=== PATIENT | female | born 1965 | race Caucasian/White ===

== ENCOUNTER 2020-08-23 12:13 | Inpatient (IN) | payer MEDICAID ==
[~2020-08-23] VITALS: Ht 152.4 cm; Wt 52.6 kg
[2020-08-23 14:04] LABS: COVID AG,FIA SOURCE NASOPHARYNGEAL
[2020-08-23] MEDS ORDERED: HALOPERIDOL 5 MG TABLET PO PRN (15:30)
[2020-08-23] MEDS: LORazepam 1 MG TABLET PO PRN (17:39)
[2020-08-23 17:40] VITALS: BP 114/77
[2020-08-23] MEDS: ZOLPIDEM TARTRATE 10 MG TABLET PO PRN (20:41)
[2020-08-24 05:52] VITALS: BP 101/61
[2020-08-24] MEDS ORDERED: BENZOCAINE/MENTHOL LOZENGE PO PRN (06:30)
[2020-08-24] MEDS ORDERED: ACETAMINOPHEN 325 MG TABLET PO PRN (06:30)
[2020-08-24] MEDS ORDERED: LOPERAMIDE HCL 2 MG CAPSULE PO PRN (06:30)
[2020-08-24] MEDS ORDERED: PETROLATUM,WHITE 28 GM JELLY TP PRN (06:30)
[2020-08-24] MEDS ORDERED: ONDANSETRON HCL 4 MG TABLET PO PRN (06:30)
[2020-08-24] MEDS ORDERED: MAG HYDROX/AL HYDROX/SIMETH ES 30 ML SUSPENSION UDCUP PO PRN (06:30)
[2020-08-24] MEDS ORDERED: MAGNESIUM HYDROXIDE SUSPENSION 30 ML UDCUP PO PRN (06:30)
[2020-08-24] MEDS ORDERED: CloNIDine HCL 0.1 MG TABLET PO PRN (06:30)
[2020-08-24] MEDS ORDERED: DOCUSATE SODIUM 100 MG CAPSULE PO PRN (06:30)
[2020-08-24] MEDS ORDERED: BACITRACIN 28 GM OINTMENT TP PRN (06:30)
[2020-08-24] MEDS ORDERED: OMEPRAZOLE 20 MG CAPSULE PO PRN (06:30)
[2020-08-24 08:26] VITALS: BP 111/70
[2020-08-24] MEDS: ALBUTEROL SULFATE/IPRATROPIUM 100-20 MCG/SPRAY 4 GM INHALER IH SCH ×3 (08:39→16:17)
[2020-08-24] MEDS: LORazepam 1 MG TABLET PO PRN ×2 (08:42→16:16)
[2020-08-24] MEDS: CITALOPRAM HYDROBROMIDE 20 MG TABLET PO SCH (10:30)
[2020-08-24 16:10] VITALS: BP 122/66
[2020-08-25 04:43] VITALS: BP 130/92
[2020-08-25 04:55] VITALS: BP 130/90
[2020-08-25] MEDS: LORazepam 1 MG TABLET PO PRN ×5 (04:59→21:15)
[2020-08-25] MEDS: ALBUTEROL SULFATE/IPRATROPIUM 100-20 MCG/SPRAY 4 GM INHALER IH SCH ×3 (05:00→16:12)
[2020-08-25] MEDS: IBUPROFEN 600 MG TABLET PO PRN (05:00)
[2020-08-25] MEDS: CITALOPRAM HYDROBROMIDE 20 MG TABLET PO SCH (08:14)
[2020-08-25 09:24] LABS: BASOPHILS % (AUTO) 0.3 % (0.0-2.0); EOSINOPHILS % (AUTO) 1.1 % (1.0-6.0); HEMOGLOBIN 13.6 g/dL (12.0-16.0); LYMPHOCYTES # (AUTO) 1.4 K/uL (1.0-4.8); LYMPHOCYTES % (AUTO) 24.5 % (22.0-44.0); MEAN CORPUSCULAR HEMOGLOBIN 30.6 pg (26.0-34.0); MEAN CORPUSCULAR HGB CONC 33.2 G/dL (31.0-37.0); MEAN CORPUSCULAR VOLUME 92 fL (80-100); MONOCYTES # (AUTO) 0.5 K/uL (0.1-1.0); MONOCYTES % (AUTO) 8.7 % (2.0-9.0); NEUTROPHILS # (AUTO) 3.7 K/uL (1.8-7.7); NEUTROPHILS % (AUTO) 65.4 % (40.0-70.0); PLATELET COUNT (AUTO) 256 K/uL (150-450); RED BLOOD CELL COUNT(AUTO) 4.44 MIL/uL (4.00-5.20); RED CELL DISTRIBUTION WIDTH 14.2 % (11.5-14.5)
[2020-08-25 10:04] LABS: HEMOGLOBIN A1C 5.6 % (3.8-5.6)
[2020-08-25 10:47] LABS: ALANINE AMINOTRANSFERASE 23 U/L (12-78); ALBUMIN 3.9 g/dL (3.4-5.0); ALKALINE PHOSPHATASE 82 U/L (46-116); ANION GAP 9 mmol/L (8-16); ASPARTATE AMINOTRANSFERASE 20 U/L (15-37); CARBON DIOXIDE 24 mmol/L (22-29); CHLORIDE 104 mmol/L (98-107); CHOL/HDL RATIO 2.5 (3.9-5.7); CHOLESTEROL 170 mg/dL (131-200); CREATININE 0.66 mg/dL (0.60-1.30); FREE T4 (FREE THYROXINE) 1.11 ng/dL (0.76-1.46); GLOMERULAR FILTR. RATE CALC > 60 mL/min (>60); GLUCOSE,RANDOM 81 mg/dL (70-110); HDL CHOLESTEROL 68 mg/dL (40-60); LDL CHOL (CALC.) 85 mg/dL (0-130); POTASSIUM 4.1 mmol/L (3.5-5.1); SODIUM SERUM 137 mmol/L (136-145); THYROID STIMULATING HORMONE 0.88 uIU/mL (0.36-3.74); TOTAL PROTEIN, SERUM 6.7 g/dL (6.4-8.2); TRIGLYCERIDES 86 mg/dL (15-150); UREA NITROGEN, BLOOD 23 mg/dL (7-18)
[2020-08-25 17:07] VITALS: BP 139/78
[2020-08-25] MEDS: ZOLPIDEM TARTRATE 10 MG TABLET PO PRN (21:15)
[2020-08-26 03:27] VITALS: BP 132/89
[2020-08-26] MEDS: ALBUTEROL SULFATE/IPRATROPIUM 100-20 MCG/SPRAY 4 GM INHALER IH SCH ×3 (08:01→16:05)
[2020-08-26] MEDS: CITALOPRAM HYDROBROMIDE 20 MG TABLET PO SCH (08:01)
[2020-08-26] MEDS: LORazepam 1 MG TABLET PO PRN ×3 (08:01→15:27)
[2020-08-26 08:11] VITALS: BP 131/83
[2020-08-26] MEDS: ALBUTEROL SULFATE HFA 90 MCG/PUFF 8 GM INHALER IH PRN (13:12)
[2020-08-26] MEDS: IBUPROFEN 600 MG TABLET PO PRN (13:13)
[2020-08-26 16:10] VITALS: BP 119/63
[2020-08-27 00:02] VITALS: BP 127/73
[2020-08-27] MEDS: LORazepam 1 MG TABLET PO PRN ×6 (00:10→20:31)
[2020-08-27] MEDS: ALBUTEROL SULFATE/IPRATROPIUM 100-20 MCG/SPRAY 4 GM INHALER IH SCH ×3 (08:03→16:14)
[2020-08-27] MEDS: CITALOPRAM HYDROBROMIDE 20 MG TABLET PO SCH (08:03)
[2020-08-27 08:13] VITALS: BP 132/80
[2020-08-27 16:05] VITALS: BP 126/80
[2020-08-27] MEDS: ZOLPIDEM TARTRATE 10 MG TABLET PO PRN (20:31)
[2020-08-28 05:04] VITALS: BP 124/74
[2020-08-28] MEDS: LORazepam 1 MG TABLET PO PRN ×3 (07:54→16:14)
[2020-08-28] MEDS: CITALOPRAM HYDROBROMIDE 20 MG TABLET PO SCH (08:03)
[2020-08-28 08:15] VITALS: BP 104/57
[2020-08-28] MEDS: ALBUTEROL SULFATE/IPRATROPIUM 100-20 MCG/SPRAY 4 GM INHALER IH SCH ×3 (09:30→16:12)
[2020-08-28] MEDS: ALBUTEROL SULFATE HFA 90 MCG/PUFF 8 GM INHALER IH PRN ×2 (11:55→16:14)
[2020-08-28 16:19] VITALS: BP 105/67
[2020-08-29 00:16] VITALS: BP 106/66
[2020-08-29] MEDS: LORazepam 1 MG TABLET PO PRN ×3 (04:40→16:58)
[2020-08-29 08:20] VITALS: BP 115/72
[2020-08-29] MEDS: ALBUTEROL SULFATE/IPRATROPIUM 100-20 MCG/SPRAY 4 GM INHALER IH SCH ×3 (08:24→16:58)
[2020-08-29] MEDS: CITALOPRAM HYDROBROMIDE 20 MG TABLET PO SCH (08:24)
[2020-08-29] MEDS: ALBUTEROL SULFATE HFA 90 MCG/PUFF 8 GM INHALER IH PRN (08:40)
[2020-08-29 16:13] VITALS: BP 108/66
[2020-08-29] MEDS: ZOLPIDEM TARTRATE 10 MG TABLET PO PRN (20:16)
[2020-08-30 04:10] VITALS: BP 118/62
[2020-08-30] MEDS: LORazepam 1 MG TABLET PO PRN ×2 (05:20→08:17)
[2020-08-30] MEDS: CITALOPRAM HYDROBROMIDE 20 MG TABLET PO SCH (08:17)
[2020-08-30] MEDS: ALBUTEROL SULFATE/IPRATROPIUM 100-20 MCG/SPRAY 4 GM INHALER IH SCH (08:17)
[2020-08-30 08:37] VITALS: BP 106/68
[2020-08-30] MEDS ORDERED: CITA-144 PO (11:29)
== END 2020-08-30 12:12 | disposition home or self-care (01) | DRG 750 ==
LOC: B3A 15:00
PROVIDERS: ADMIT Psychiatry & Neurology Psychiatry; ATTEND Psychiatry & Neurology Psychiatry
DX: F25.9 Schizoaffective disorder, unspecified (principal); F12.90 Cannabis use, unspecified, uncomplicated; Z20.822 Contact with and (suspected) exposure to COVID-19; F14.90 Cocaine use, unspecified, uncomplicated; F32.9 Major depressive disorder, single episode, unspecified; F41.9 Anxiety disorder, unspecified; G47.00 Insomnia, unspecified; J45.909 Unspecified asthma, uncomplicated; K59.00 Constipation, unspecified
CPT/HCPCS: 80053; 80061; 83036; 84436; 84439; 84443; 85025; J3535

== ENCOUNTER 2020-09-20 15:20 | Inpatient (IN) | payer MEDICAID ==
[~2020-09-20] VITALS: Ht 152.4 cm; Wt 49.3 kg
[~2020-09-20 15:20] MED LIST: CITA-144 PO
[2020-09-20 16:10] LABS: BASOPHILS % (AUTO) 0.8 % (0.0-2.0); EOSINOPHILS % (AUTO) 0.7 % (1.0-6.0); HEMATOCRIT 41.8 % (36-46); HEMOGLOBIN 13.9 g/dL (12.0-16.0); LYMPHOCYTES # (AUTO) 2.1 K/uL (1.0-4.8); LYMPHOCYTES % (AUTO) 24.1 % (22.0-44.0); MEAN CORPUSCULAR HEMOGLOBIN 30.4 pg (26.0-34.0); MEAN CORPUSCULAR HGB CONC 33.2 G/dL (31.0-37.0); MEAN CORPUSCULAR VOLUME 92 fL (80-100); MONOCYTES # (AUTO) 0.7 K/uL (0.1-1.0); MONOCYTES % (AUTO) 8.5 % (2.0-9.0); NEUTROPHILS # (AUTO) 5.6 K/uL (1.8-7.7); NEUTROPHILS % (AUTO) 65.9 % (40.0-70.0); PLATELET COUNT (AUTO) 291 K/uL (150-450); RED BLOOD CELL COUNT(AUTO) 4.57 MIL/uL (4.00-5.20); RED CELL DISTRIBUTION WIDTH 14.5 % (11.5-14.5)
[2020-09-20 16:20] LABS: ANION GAP 12 mmol/L (8-16); CALCIUM, TOTAL 9.2 mg/dL (8.8-10.5); CARBON DIOXIDE 21 mmol/L (22-29); CHLORIDE 103 mmol/L (98-107); CREATININE 0.74 mg/dL (0.60-1.30); GLOMERULAR FILTR. RATE CALC > 60 mL/min (>60); GLUCOSE,RANDOM 94 mg/dL (70-110); POTASSIUM 3.3 mmol/L (3.5-5.1); SODIUM SERUM 136 mmol/L (136-145); UREA NITROGEN, BLOOD 14 mg/dL (7-18)
[2020-09-20 16:33] LABS: ALANINE AMINOTRANSFERASE 26 U/L (12-78); ALBUMIN 4.4 g/dL (3.4-5.0); ALKALINE PHOSPHATASE 85 U/L (46-116); ASPARTATE AMINOTRANSFERASE 23 U/L (15-37); HCG,QUANTITATIVE 2 mIU/mL (0-6); TOTAL PROTEIN, SERUM 7.5 g/dL (6.4-8.2)
[2020-09-20] MEDS ORDERED: POTASSIUM CHLORIDE 20 MEQ ER TABLET PO ONE (19:15)
[2020-09-20] MEDS ORDERED: LORazepam 2 MG/ML VIAL IM ONE (19:15)
[2020-09-20] MEDS ORDERED: DiphenhydrAMINE HCL 50 MG/ML VIAL IM ONE (19:15)
[2020-09-20] MEDS ORDERED: HALOPERIDOL LACTATE 5 MG/ML VIAL IM ONE (19:15)
[2020-09-20 19:45] LABS: COVID AG,FIA SOURCE NASOPHARYNGEAL
[2020-09-20 19:55] LABS: AMPHET/METH SCREEN,URINE NEGATIVE (NEGATIVE); BARBITURATE SCREEN, URINE NEGATIVE (NEGATIVE); BENZODIAZEPINES SCREEN,URINE NEGATIVE (NEGATIVE); CANNABINOID SCREEN,URINE POSITIVE (NEGATIVE); COCAINE SCREEN,URINE NEGATIVE (NEGATIVE); METHADONE SCREEN, URINE NEGATIVE (NEGATIVE); OPIATE SCREEN,URINE NEGATIVE (NEGATIVE)
[2020-09-20 19:56] LABS: PHENCYCLIDINE SCREEN,URINE NEGATIVE (NEGATIVE)
[2020-09-20] MEDS ORDERED: ZOLPIDEM TARTRATE 10 MG TABLET PO PRN (20:00)
[2020-09-21 00:50] VITALS: BP 138/75
[2020-09-21] MEDS ORDERED: PNEUMOCOCCAL VACCINE POLYVALENT 0.5 ML VIAL [PPSV23] IM. ONE (03:15)
[2020-09-21 08:26] VITALS: BP 126/69
[2020-09-21] MEDS ORDERED: LOPERAMIDE HCL 2 MG CAPSULE PO PRN (08:30)
[2020-09-21] MEDS ORDERED: MAG HYDROX/AL HYDROX/SIMETH ES 30 ML SUSPENSION UDCUP PO PRN (08:30)
[2020-09-21] MEDS ORDERED: ALBUTEROL SULFATE HFA 90 MCG/PUFF 8 GM INHALER IH PRN (08:30)
[2020-09-21] MEDS ORDERED: BACITRACIN 28 GM OINTMENT TP PRN (08:30)
[2020-09-21] MEDS ORDERED: BENZOCAINE/MENTHOL LOZENGE PO PRN (08:30)
[2020-09-21] MEDS ORDERED: DOCUSATE SODIUM 100 MG CAPSULE PO PRN (08:30)
[2020-09-21] MEDS ORDERED: IBUPROFEN 600 MG TABLET PO PRN (08:30)
[2020-09-21] MEDS ORDERED: OMEPRAZOLE 20 MG CAPSULE PO PRN (08:30)
[2020-09-21] MEDS ORDERED: ONDANSETRON HCL 4 MG TABLET PO PRN (08:30)
[2020-09-21] MEDS ORDERED: ACETAMINOPHEN 325 MG TABLET PO PRN (08:30)
[2020-09-21] MEDS ORDERED: MAGNESIUM HYDROXIDE SUSPENSION 30 ML UDCUP PO PRN (08:30)
[2020-09-21] MEDS ORDERED: PETROLATUM,WHITE 28 GM JELLY TP PRN (08:30)
[2020-09-21] MEDS ORDERED: CloNIDine HCL 0.1 MG TABLET PO PRN (08:30)
[2020-09-21] MEDS: CITALOPRAM HYDROBROMIDE 20 MG TABLET PO SCH (10:15)
[2020-09-21] MEDS: RisperiDONE 1 MG TABLET PO SCH ×2 (10:15→17:00)
[2020-09-21] MEDS: LORazepam 2 MG TABLET PO PRN (10:49)
[2020-09-21 16:23] VITALS: BP 117/62
[2020-09-22 01:16] VITALS: BP 118/71
[2020-09-22 07:45] LABS: POTASSIUM 3.9 mmol/L (3.5-5.1)
[2020-09-22] MEDS: LORazepam 2 MG TABLET PO PRN ×2 (08:13→13:23)
[2020-09-22] MEDS: RisperiDONE 1 MG TABLET PO SCH ×2 (08:14→16:27)
[2020-09-22] MEDS: CITALOPRAM HYDROBROMIDE 20 MG TABLET PO SCH (08:14)
[2020-09-22 09:00] VITALS: BP 106/70
[2020-09-22] MEDS: HALOPERIDOL 5 MG TABLET PO PRN (12:20)
[2020-09-22 16:23] VITALS: BP 110/60
[2020-09-23 00:34] VITALS: BP 109/68
[2020-09-23] MEDS: LORazepam 2 MG TABLET PO PRN ×2 (05:21→10:29)
[2020-09-23] MEDS: CITALOPRAM HYDROBROMIDE 20 MG TABLET PO SCH (08:45)
[2020-09-23] MEDS: RisperiDONE 1 MG TABLET PO SCH (08:45)
[2020-09-23] MEDS: HALOPERIDOL 5 MG TABLET PO PRN (08:49)
[2020-09-23 09:01] VITALS: BP 137/78
[2020-09-23] MEDS ORDERED: RISP0.5T61 PO (11:07)
[2020-09-23] MEDS ORDERED: RISP1TAB89 PO (11:10)
== END 2020-09-23 12:10 | disposition home or self-care (01) | DRG 750 ==
LOC: EMS 15:25 → B2S 19:00
PROVIDERS: ADMIT Psychiatry & Neurology Psychiatry; ATTEND Psychiatry & Neurology Psychiatry
DX: F20.0 Paranoid schizophrenia (principal); R45.851 Suicidal ideations; Z91.14 Patient's other noncompliance with medication regimen; F12.90 Cannabis use, unspecified, uncomplicated; F14.90 Cocaine use, unspecified, uncomplicated; G47.00 Insomnia, unspecified; J45.909 Unspecified asthma, uncomplicated; Z20.822 Contact with and (suspected) exposure to COVID-19; K59.00 Constipation, unspecified; Z87.891 Personal history of nicotine dependence
CPT/HCPCS: 80053; 84132; 84295; 84702; 85025; 87081; 99285; G0480; J1200; J1630; J2060

== ENCOUNTER 2021-06-15 16:43 | Inpatient (IN) | payer MEDICAID ==
[~2021-06-15] VITALS: Ht 152.4 cm; Wt 48.2 kg
[~2021-06-15 16:43] MED LIST changes: +RISP1TAB89 PO
[2021-06-15 17:18] LABS: BASOPHILS % (AUTO) 0.2 % (0.0-2.0); EOSINOPHILS % (AUTO) 0.5 % (1.0-6.0); HEMOGLOBIN 12.5 g/dL (12.0-16.0); LYMPHOCYTES % (AUTO) 13.4 % (22.0-44.0); MEAN CORPUSCULAR HEMOGLOBIN 30.5 pg (26.0-34.0); MEAN CORPUSCULAR HGB CONC 33.9 G/dL (31.0-37.0); MEAN CORPUSCULAR VOLUME 90 fL (80-100); MONOCYTES # (AUTO) 0.5 K/uL (0.1-1.0); MONOCYTES % (AUTO) 6.9 % (2.0-9.0); NEUTROPHILS # (AUTO) 5.8 K/uL (1.8-7.7); PLATELET COUNT (AUTO) 252 K/uL (150-450); RED BLOOD CELL COUNT(AUTO) 4.11 MIL/uL (4.00-5.20)
[2021-06-15 17:32] LABS: ANION GAP 12 mmol/L (8-16); CARBON DIOXIDE 26 mmol/L (22-29); CHLORIDE 104 mmol/L (98-107); CREATININE 1.14 mg/dL (0.60-1.30); GLOMERULAR FILTR. RATE CALC 49 mL/min (>60); GLUCOSE,RANDOM 144 mg/dL (70-110); SODIUM SERUM 142 mmol/L (136-145); UREA NITROGEN, BLOOD 19 mg/dL (7-18)
[2021-06-15 17:37] LABS: ALANINE AMINOTRANSFERASE 24 U/L (12-78); ALBUMIN 3.9 g/dL (3.4-5.0); ALKALINE PHOSPHATASE 90 U/L (46-116); ASPARTATE AMINOTRANSFERASE 21 U/L (15-37); BILIRUBIN,TOTAL 0.5 mg/dL (0.1-1.0); TOTAL PROTEIN, SERUM 6.4 g/dL (6.4-8.2)
[2021-06-15] MEDS ORDERED: ZOLPIDEM TARTRATE 10 MG TABLET PO PRN (18:00)
[2021-06-15] MEDS ORDERED: HALOPERIDOL 5 MG TABLET PO PRN (18:00)
[2021-06-15] MEDS ORDERED: POTASSIUM CHLORIDE 10% 40 MEQ/30 ML LIQUID UDCUP PO ONE (18:00)
[2021-06-15 18:32] LABS: COVID AG,FIA SOURCE NASOPHARYNGEAL
[2021-06-15 18:45] LABS: APPEARANCE,URINE CLEAR (CLEAR); BILIRUBIN,URINE NEGATIVE (NEGATIVE); GLUCOSE, URINE (UA) NEGATIVE (NEGATIVE); KETONES,URINE NEGATIVE (NEGATIVE); LEUKOCYTE ESTERASE ,URINE TRACE (NEGATIVE); NITRATE,URINE NEGATIVE (NEGATIVE); OCCULT BLOOD,URINE NEGATIVE (NEGATIVE); PH,URINE 6.5 (5.0-8.0); PROTEIN,URINE TRACE mg/dL (NEGATIVE); SPECIFIC GRAVITIY, URINE 1.016 (1.003-1.030); UROBILINOGEN,URINE <=1.0 mg/dL (<=1.0)
[2021-06-15 18:52] LABS: AMPHET/METH SCREEN,URINE POSITIVE (NEGATIVE); BARBITURATE SCREEN, URINE NEGATIVE (NEGATIVE); BENZODIAZEPINES SCREEN,URINE POSITIVE (NEGATIVE); CANNABINOID SCREEN,URINE POSITIVE (NEGATIVE); COCAINE SCREEN,URINE NEGATIVE (NEGATIVE); METHADONE SCREEN, URINE NEGATIVE (NEGATIVE); OPIATE SCREEN,URINE NEGATIVE (NEGATIVE)
[2021-06-15 19:08] LABS: BACTERIA,URINE None Seen /HPF (None Seen); RBC,URINE 0-2 /HPF (0-2); SQUAMOUS EPITHELIAL CELL,UR Few /LPF (None Seen); WBC,URINE 0-2 /HPF (0-5)
[2021-06-15 19:09] LABS: PHENCYCLIDINE SCREEN,URINE NEGATIVE (NEGATIVE)
[2021-06-15] MEDS ORDERED: DiphenhydrAMINE HCL 50 MG/ML VIAL IM ONE (19:30)
[2021-06-15] MEDS ORDERED: HALOPERIDOL LACTATE 5 MG/ML VIAL IM ONE (19:30)
[2021-06-15] MEDS ORDERED: LORazepam 2 MG/ML VIAL IM ONE (19:30)
[2021-06-15] MEDS ORDERED: PNEUMOCOCCAL VACCINE POLYVALENT 0.5 ML VIAL [PPSV23] IM. ONE (20:30)
[2021-06-16] MEDS ORDERED: CloNIDine HCL 0.1 MG TABLET PO PRN (08:15)
[2021-06-16] MEDS ORDERED: ACETAMINOPHEN 325 MG TABLET PO PRN (08:15)
[2021-06-16] MEDS ORDERED: BENZOCAINE/MENTHOL LOZENGE PO PRN (08:15)
[2021-06-16] MEDS ORDERED: OMEPRAZOLE 20 MG CAPSULE PO PRN (08:15)
[2021-06-16] MEDS ORDERED: ONDANSETRON HCL 4 MG TABLET PO PRN (08:15)
[2021-06-16] MEDS ORDERED: PETROLATUM,WHITE 28 GM JELLY TP PRN (08:15)
[2021-06-16] MEDS ORDERED: DOCUSATE SODIUM 100 MG CAPSULE PO PRN (08:15)
[2021-06-16] MEDS ORDERED: BACITRACIN 28 GM OINTMENT TP PRN (08:15)
[2021-06-16] MEDS ORDERED: IBUPROFEN 600 MG TABLET PO PRN (08:15)
[2021-06-16] MEDS ORDERED: LOPERAMIDE HCL 2 MG CAPSULE PO PRN (08:15)
[2021-06-16] MEDS ORDERED: MAGNESIUM HYDROXIDE SUSPENSION 30 ML UDCUP PO PRN (08:15)
[2021-06-16] MEDS ORDERED: MAG HYDROX/AL HYDROX/SIMETH ES 30 ML SUSPENSION UDCUP PO PRN (08:15)
[2021-06-16] MEDS: CITALOPRAM HYDROBROMIDE 20 MG TABLET PO SCH (15:03)
[2021-06-16] MEDS: RisperiDONE 1 MG TABLET PO SCH (16:31)
[2021-06-16 16:40] VITALS: BP 109/72
[2021-06-16] MEDS ORDERED: RisperiDONE 1 MG TABLET PO SCH (17:00)
[2021-06-17] MEDS: CITALOPRAM HYDROBROMIDE 20 MG TABLET PO SCH (08:56)
[2021-06-17] MEDS: RisperiDONE 1 MG TABLET PO SCH ×2 (08:57→16:48)
[2021-06-17 16:29] VITALS: BP 108/79
[2021-06-18] MEDS: LORazepam 2 MG TABLET PO PRN (07:54)
[2021-06-18] MEDS: CITALOPRAM HYDROBROMIDE 20 MG TABLET PO SCH (07:54)
[2021-06-18] MEDS: RisperiDONE 1 MG TABLET PO SCH ×2 (08:00→16:53)
[2021-06-18 08:32] VITALS: BP 100/62
[2021-06-19] MEDS: LORazepam 2 MG TABLET PO PRN ×3 (07:47→15:54)
[2021-06-19] MEDS: RisperiDONE 1 MG TABLET PO SCH ×2 (07:52→15:55)
[2021-06-19] MEDS: CITALOPRAM HYDROBROMIDE 20 MG TABLET PO SCH (07:52)
[2021-06-19] MEDS: ALBUTEROL SULFATE HFA 90 MCG/PUFF 8 GM INHALER IH PRN (10:36)
[2021-06-20] MEDS: LORazepam 2 MG TABLET PO PRN ×3 (06:40→18:13)
[2021-06-20] MEDS: ALBUTEROL SULFATE HFA 90 MCG/PUFF 8 GM INHALER IH PRN ×2 (06:41→17:47)
[2021-06-20] MEDS: CITALOPRAM HYDROBROMIDE 20 MG TABLET PO SCH (07:35)
[2021-06-20] MEDS: RisperiDONE 1 MG TABLET PO SCH ×2 (07:35→17:00)
[2021-06-20 08:34] VITALS: BP 154/90
[2021-06-20 16:15] VITALS: BP 131/79
[2021-06-21] MEDS: LORazepam 2 MG TABLET PO PRN (08:31)
[2021-06-21] MEDS: CITALOPRAM HYDROBROMIDE 20 MG TABLET PO SCH (09:00)
[2021-06-21] MEDS: RisperiDONE 1 MG TABLET PO SCH ×2 (09:00→16:07)
[2021-06-21 10:45] VITALS: BP 151/85
[2021-06-21] MEDS ORDERED: HALOPERIDOL LACTATE 5 MG/ML VIAL ONE (14:27)
[2021-06-21] MEDS ORDERED: LORazepam 2 MG/ML VIAL ONE (14:27)
[2021-06-21] MEDS ORDERED: DiphenhydrAMINE HCL 50 MG/ML VIAL ONE (14:28)
[2021-06-21] MEDS ORDERED: DiphenhydrAMINE HCL 50 MG/ML VIAL IM ONE (14:30)
[2021-06-21] MEDS ORDERED: LORazepam 2 MG/ML VIAL IM ONE (14:30)
[2021-06-21] MEDS ORDERED: HALOPERIDOL LACTATE 5 MG/ML VIAL IM ONE (14:30)
[2021-06-22 06:06] LABS: HEPATITIS C AB (EIA) >11.0 s/co ratio (0.0-0.9)
[2021-06-22] MEDS: RisperiDONE 1 MG TABLET PO SCH ×2 (09:00→16:41)
[2021-06-22] MEDS: CITALOPRAM HYDROBROMIDE 20 MG TABLET PO SCH (09:00)
[2021-06-22] MEDS: LORazepam 2 MG TABLET PO PRN ×2 (11:45→16:41)
[2021-06-23] MEDS: ALBUTEROL SULFATE HFA 90 MCG/PUFF 8 GM INHALER IH PRN (06:17)
[2021-06-23] MEDS: RisperiDONE 1 MG TABLET PO SCH ×2 (09:00→17:00)
[2021-06-23] MEDS: CITALOPRAM HYDROBROMIDE 20 MG TABLET PO SCH (09:00)
[2021-06-23] MEDS: LORazepam 2 MG TABLET PO PRN ×2 (11:34→15:35)
[2021-06-23 16:41] VITALS: BP 129/81
[2021-06-24] MEDS: ALBUTEROL SULFATE HFA 90 MCG/PUFF 8 GM INHALER IH PRN (07:03)
[2021-06-24] MEDS: CITALOPRAM HYDROBROMIDE 20 MG TABLET PO SCH (07:51)
[2021-06-24] MEDS: LORazepam 2 MG TABLET PO PRN ×3 (07:51→16:26)
[2021-06-24] MEDS: RisperiDONE 1 MG TABLET PO SCH ×2 (07:51→17:00)
[2021-06-24 08:00] VITALS: BP 91/60
[2021-06-24 12:07] LABS: HEPATITIS C RT-PCR,QNT HCV Not Detected IU/mL
[2021-06-24 16:05] VITALS: BP 151/75
[2021-06-25] MEDS: LORazepam 2 MG TABLET PO PRN (08:10)
[2021-06-25] MEDS: RisperiDONE 1 MG TABLET PO SCH ×2 (09:00→17:00)
[2021-06-25] MEDS: CITALOPRAM HYDROBROMIDE 20 MG TABLET PO SCH (09:00)
[2021-06-25 09:13] VITALS: BP 119/91
[2021-06-25 16:11] VITALS: BP 124/56
[2021-06-25] MEDS ORDERED: HALOPERIDOL LACTATE 5 MG/ML VIAL IM ONE (16:15)
[2021-06-25] MEDS ORDERED: LORazepam 2 MG/ML VIAL IM ONE (16:15)
[2021-06-25] MEDS ORDERED: DiphenhydrAMINE HCL 50 MG/ML VIAL IM ONE (16:15)
[2021-06-25] MEDS ORDERED: LORazepam 2 MG/ML VIAL ONE (16:21)
[2021-06-25] MEDS ORDERED: DiphenhydrAMINE HCL 50 MG/ML VIAL ONE (16:21)
[2021-06-25] MEDS ORDERED: HALOPERIDOL LACTATE 5 MG/ML VIAL ONE (16:21)
[2021-06-26] MEDS: CITALOPRAM HYDROBROMIDE 20 MG TABLET PO SCH (09:00)
[2021-06-26] MEDS: RisperiDONE 1 MG TABLET PO SCH ×2 (09:00→16:52)
[2021-06-26] MEDS: HydrOXYzine PAMOATE 50 MG CAPSULE PO PRN ×2 (11:50→16:53)
[2021-06-26 16:03] VITALS: BP 91/60
[2021-06-27] MEDS: ALBUTEROL SULFATE HFA 90 MCG/PUFF 8 GM INHALER IH PRN (08:07)
[2021-06-27] MEDS: RisperiDONE 1 MG TABLET PO SCH (08:07)
[2021-06-27] MEDS: CITALOPRAM HYDROBROMIDE 20 MG TABLET PO SCH (08:07)
== END 2021-06-27 12:15 | disposition left against medical advice (07) | DRG 753 ==
LOC: EDBD → EMS 16:48 → 3EC 19:32
PROVIDERS: ADMIT Psychiatry & Neurology Child & Adolescent Psychiatry; ATTEND Psychiatry & Neurology Child & Adolescent Psychiatry
DX: F31.4 Bipolar disorder, current episode depressed, severe, without psychotic features (principal); R45.851 Suicidal ideations; F22 Delusional disorders; F15.10 Other stimulant abuse, uncomplicated; F41.9 Anxiety disorder, unspecified; Z20.822 Contact with and (suspected) exposure to COVID-19; G47.00 Insomnia, unspecified; J45.909 Unspecified asthma, uncomplicated; Z53.29 Procedure and treatment not carried out because of patient's decision for other reasons; K59.00 Constipation, unspecified; F14.10 Cocaine abuse, uncomplicated; F12.10 Cannabis abuse, uncomplicated; Z87.891 Personal history of nicotine dependence; Z28.9 Immunization not carried out for unspecified reason; Z91.19 Patient's noncompliance with other medical treatment and regimen
CPT/HCPCS: 80053; 81001; 84132; 84460; 85025; 86803; 87340; 87522; 99291; G0480; J1200; J1630; J2060; J3535

== ENCOUNTER 2021-06-30 08:41 | Emergency (ER) | payer MEDICAID | END 2021-06-30 09:45 | disposition left against medical advice (07) | LOC: EDUNIT# 08:41 → EDBD 08:44 → EMS 08:44 | DX: Z00.00 Encounter for general adult medical examination without abnormal findings (principal); Z53.21 Procedure and treatment not carried out due to patient leaving prior to being seen by health care provider ==